=== PATIENT | female | born 1960 | race Caucasian/White ===

== ENCOUNTER → 2017-02-05 | Outpatient (CLI) | payer OTHER ==
[~2017-02-05] MED LIST: ASA325 MG PO; BENADRYL-DPS25 MG PO; BIOTIN2500 MCG PO; DIGEST ADV INT1 EACH PO; MAALOX DPS30 ML PO; MILK OF MAGNESI10 ML PO; MIRALAX PACKET17 GM PO; NATURE-THROID65 MG PO; OXY IR DPS5 MG PO; PROGESTERONE200 MG PO; PROTONIX40 MG PO; SENOKOT S1 TAB PO; SURFAK DPS240 MG PO; TUMS DPS500 MG PO; TYLENOL DPS325 MG PO; ULTRAM DPS50 MG PO; VITAMIN D-32000 UNI1 PO; [UNRECOGNIZED DRUG - OTHER] PO; [UNRECOGNIZED DRUG - OTHER] SQ
== END | disposition home or self-care (01) ==
LOC: PTH.S 11:17
DX: Z01.812 Encounter for preprocedural laboratory examination (principal)

== ENCOUNTER 2017-02-19 05:17 | Inpatient (IN) | payer OTHER ==
[~2017-02-19 05:17] MED LIST changes: -BIOTIN2500 MCG PO; -MAALOX DPS30 ML PO; -PROGESTERONE200 MG PO; -TUMS DPS500 MG PO; -[UNRECOGNIZED DRUG - OTHER] PO; -[UNRECOGNIZED DRUG - OTHER] SQ
[2017-02-21] MEDS ORDERED: BIOTIN2500 MCG PO (13:46)
[2017-02-21] MEDS ORDERED: PROGESTERONE200 MG PO (13:47)
[2017-02-21] MEDS ORDERED: MAALOX DPS30 ML PO (13:50)
[2017-02-21] MEDS ORDERED: ULTRAM DPS50 MG PO (13:50)
[2017-02-21] MEDS ORDERED: TUMS DPS500 MG PO (13:51)
[2017-02-21] MEDS ORDERED: [UNRECOGNIZED DRUG - OTHER] PO (13:54)
[2017-02-21] MEDS ORDERED: [UNRECOGNIZED DRUG - OTHER] SQ (13:55)
== END 2017-02-20 15:50 | disposition home or self-care (01) | DRG 470 ==
DX: M16.11 Unilateral primary osteoarthritis, right hip (principal); Z96.642 Presence of left artificial hip joint; I10 Essential (primary) hypertension; E03.9 Hypothyroidism, unspecified; E55.9 Vitamin D deficiency, unspecified